=== PATIENT | female | born 1970 | race Caucasian/White ===

== ENCOUNTER 2023-05-27 21:13 | Observation (INO) | payer OTHER, SELFPAY ==
[2023-05-27] VITALS (15 sets, daily range): BP systolic 101–153; BP diastolic 57–127; BMI 29.1
[2023-05-27 19:43] LABS: % Basophils 0.3 % (0-2); % Eosinophils 0.7 % (0-6); % Immature Granulocytes 0.3 % (0-0.5); % Lymphocytes 25.6 % (20.5-51.1); % Monocytes 7.7 % (1.7-9.3); % Neutrophils 65.4 % (42.2-75.2); Absolute Eosinophils 0.1 10^3/uL (0-0.7); Absolute Monocytes 0.9 10^3/uL (0.1-0.6); Absolute Neutrophils 7.7 10^3/uL (1.4-6.5); Hematocrit 36.5 % (37.0-47.0); Hemoglobin 12.6 g/dL (12.0-16.0); Mean Corp Hgb Conc. 34.5 g/dL (33.0-37.0); Mean Corpuscular Hgb 29.4 pg (27.0-31.0); Mean Corpuscular Volume 85.3 fL (81.0-99.0); Mean Platelet Volume 10.9 fL (7.4-10.4); Nucleated Red Blood Cells % 0 %; Platelet Count 292 10^3/uL (130-400); Red Blood Cell Count 4.28 10^6/uL (4.20-5.40); Red Cell Dist. Width 13.3 % (11.5-14.5); White Blood Cell Count 11.8 10^3/uL (4.8-10.8)
--- NOTE | 2023-05-27 19:57 | ED.GENMED ---
History of Present Illness
General
Chief Complaint: Heart Rate Problem
Source: patient
Exam Limitations: none
Time Seen by Provider: 05/27/23 19:18
Travel History
Have you had any contact with someone who has COVID-19?: No
Do you have any symptoms of coronavirus? Fever > 100 degrees, chills, cough, shortness of breath, sore throat, loss of taste or smell, muscle aches, or headache?: No
History of Present Illness
History of Present Illness:
52-year-old female recent cardioversion for atrial fibrillation/flutter. Presents with recurrent episodes of heart racing. Intermittent over the last week. Metoprolol has been doubled to 25 mg a day. She took a dose this morning. No chest pain
no shortness of breath no syncope. Patient has a cardiac card to monitor her heart rate.
Past History
Past History
ED Past Medical History: Arrthythmia and Hypothyroidism
ED Past Surgical History: Cardiac (Cardiac ablation)
Social History
Tobacco: Non-smoker
Review of Systems
Review of Systems
All Other Systems: Not applicable
Respiratory: Reports no symptoms
Cardiac: Denies chest pain or syncope
Phy Exam
Physical Exam
Physical Exam:
GENERAL: Alert and oriented in no apparent distress
EYE: Orbits normal.
NECK: Supple, no thyroid palpable.
ENT: Pharynx without erythema
CARDIAC: Tachycardic and mostly regular. No murmur
LUNGS: Clear breath sounds,normal
ABDOMEN: Soft, without focal tenderness or distention
NEUROLOGICAL: Alert and oriented , grossly non-focal
SKIN: Warm and dry, no rash or lesion, no discoloration, skin intact.
MUSCULOSKELETAL: No edema,no deformity.Good color
PSYCH: Normal and appropriate interaction.
Course
Orders/Labs/Results
Orders:
Orders
05/27/23 18:40
EKG [Electrocardiogram (*1)] Urgent
Reason for Study: Chest Pain
EKG- Treatment ONCE
05/27/23 19:31
Pulse Ox/cont/shift [RESP] Stat
Quantity: 1
05/27/23 19:33
Basic Metabolic Panel Urgent
Complete Blood Count/With Diff Urgent
TSH Reflex To Free T4 Urgent
05/27/23 19:55
Diltiazem 125 mg/125 ml Nss [Cardizem] 125 mg in 125 ml IV NOW
Initial dose in mg/hr, then titrate:: 5
Titrate to keep:: Heart rate 80-100 bpm
Titrate by mg/hr:: 5 mg/hr
Frequency of titrations (minutes):: 15
Maximum dose in mg/hr:: 15
Diltiazem HCl [Cardizem] 10 mg IV NOW STA
05/27/23 20:55
Admit/Transfer Patient As Directed
Co-Sign Provider:
Level of Care: Observation services
Assign to:: IVU
Physician / Group: Dr. Keating
Diagnosis: Afib/Aflutter
05/27/23 20:56
Code Status As Directed
Resuscitation Status: Full Code
05/27/23 22:31
Apixaban [Eliquis] 5 mg PO BID
Diltiazem 125 mg/125 ml Nss [Cardizem] 125 mg in 125 ml IV PER PROTOCOL
Initial dose in mg/hr, then titrate:: 5
Titrate to keep:: Heart rate 80-100 bpm
Titrate by mg/hr:: 5 mg/hr
Frequency of titrations (minutes):: 15
Maximum dose in mg/hr:: 15
05/27/23 22:31
Activity As Directed
Activity Level: Out of Bed-Early Mobility
Vital Signs As Directed
Frequency: Per unit guidelines
05/28/23 Breakfast
Regular
At Your Request: Full Participation
Basic Metabolic Panel IN AM
Complete Blood Count/No Diff IN AM
05/28/23 07:00
Levothyroxine [Synthroid] 75 mcg PO DAILY@0700
05/28/23 22:00
Metoprolol Xl [Toprol Xl] 25 mg PO HS
Abnormal Lab Results
05/27/23
19:33
WBC 11.8 H 10^3/uL
(4.8-10.8)
Hct 36.5 L %
(37.0-47.0)
MPV 10.9 H fL
(7.4-10.4)
Absolute Neuts (auto) 7.7 H 10^3/uL
(1.4-6.5)
Absolute Monos (auto) 0.9 H 10^3/uL
(0.1-0.6)
Glucose 101 H mg/dl
(70-99)
05/27/23 19:33
05/27/23 19:33
Vital Signs
Initial and Last Documented VS:
Initial Vital Signs
Temp Pulse Resp BP Pulse Ox
98.4 F 110 20 128/86 98
05/27/23 18:43 05/27/23 18:43 05/27/23 18:43 05/27/23 18:43 05/27/23 18:43
Last Documented Vital Signs
Temp Pulse Resp BP Pulse Ox
98.7 F 97 18 117/70 95
05/27/23 22:45 05/27/23 23:45 05/27/23 22:45 05/27/23 23:00 05/27/23 22:45
MDM/Problems Addressed
Differential Diagnosis Includes:
Discussed with cardiology. Was initially contemplating cardioversion as initially I thought this might have been an event that just occurred today. However patient by history is having these episodes intermittently over the last week. She does
have prove on her card/khadar of atrial flutter last Tuesday. Because of the paroxysmal component feel cardioversion is on appropriate. Rate control admission with possible antiarrhythmic in the near future
*Critical Care Note
Total Time (30-74mins, 75-104mins- exclusive of procedures): 15
Data Reviewed
Review of Other/Old Records Reveals: Labs, Records, Testing and Progress Notes
Update Note
Update Note:
2030.... Heart rate 110 atrial flutter rate controlled.
ED Attending Note
-
Portions of this chart may have been created with voice recognition software.� Occasional wrong word or��sound alike� substitutions may have occurred due to the inherent limitations of voice recognition software.
Discharge Plan
Departure
Patient Disposition: Admit
Date of Disposition: 05/27/23
Time of Disposition: 20:01
Presentation/result/management discussed w/ accepting MD/DO: Cardiology
Discharge Problem:
ATRIAL FIBRILLATION FLUTTER, RVR
Interventions
Interventions:
*Risk Screen - Suicide Last Done: 05/27/23 22:48
*General Assessment Last Done: 05/27/23 22:41
*Neglect/Abuse Screening Last Done: 05/27/23 22:41
*ED COVID-19 Vaccine History Last Done: 05/27/23 22:48
*Nursing Disposition Last Done: 05/27/23 22:41
ED- Cardiac Assessment Last Done: 05/27/23 19:20
ED- Pulmonary Assessment Last Done: 05/27/23 19:20
Discharge Date and Time
Discharge Date/Time: 05/27/23 22:42
[2023-05-27 19:59] LABS: Blood Urea Nitrogen 12 mg/dl (7-17); Calcium 9.7 mg/dl (8.4-10.2); Carbon Dioxide 27 mmol/L (22-30); Chloride 104 mmol/L (98-107); Glucose 101 mg/dl (70-99); Potassium 3.8 mmol/L (3.5-5.1); Sodium 140 mmol/L (135-145); eGFR > 60.00
[2023-05-27] MEDS: CARDIZEM 10 MG IV (20:03)
[2023-05-27] MEDS: CARDIZEM 125 IV (20:04)
[2023-05-27 20:30] LABS: TSH Reflex To Free T4 3.73 uIU/ml (0.47-4.68)
[2023-05-27] MEDS: ELIQUIS 5 MG PO (23:04)
--- NOTE | 2023-05-27 23:32 | PTCARENOTE ---
Pt admitted for afib/aflutter- plan of care discussed- pt verbalized understanding. aflutter on the monitor- low 100s ar rest. 190s with minimal movement. pt notes little palpitations and she states she 'is not as short of breath as she would
imagine' Increased the Cardizem gtt upon arrival to the floor documented on the work list.
[2023-05-28] VITALS (11 sets, daily range): BP systolic 80–117; BP diastolic 52–69
[2023-05-28 04:07] LABS: Hematocrit 32.2 % (37.0-47.0); Hemoglobin 11.2 g/dL (12.0-16.0); Mean Corp Hgb Conc. 34.8 g/dL (33.0-37.0); Mean Corpuscular Hgb 29.3 pg (27.0-31.0); Mean Corpuscular Volume 84.3 fL (81.0-99.0); Mean Platelet Volume 11.4 fL (7.4-10.4); Platelet Count 249 10^3/uL (130-400); Red Blood Cell Count 3.82 10^6/uL (4.20-5.40); Red Cell Dist. Width 13.4 % (11.5-14.5)
[2023-05-28 04:36] LABS: Blood Urea Nitrogen 13 mg/dl (7-17); Calcium 8.5 mg/dl (8.4-10.2); Carbon Dioxide 25 mmol/L (22-30); Chloride 109 mmol/L (98-107); Estimated Creatinine Clearance 104 ml/min; Glucose 116 mg/dl (70-99); Potassium 3.5 mmol/L (3.5-5.1); Sodium 138 mmol/L (135-145); eGFR > 60.00
--- NOTE | 2023-05-28 08:13 | HPS.HSE ---
Addendum entered and electronically signed by Ye Keating MD 05/28/23 09:39:
52 yo female with PMH of typical atrial flutter, recent DCCV, is admitted with recurrent atrial flutter with RVR. Better on diltiazem drip. Minimal palps. Exam with irregular rhythm, no murmurs, no edema. Tele: A flutter 80s.
Transition diltiazem drip to PO diltiazem. Monitor rates. Assess for discharge and outpatient follow up with referral for ablation.
Original Note:
Family Physician
-
Family Physician: Veronica Keller PA-C
Chief Complaint
-
palpitations, tachycardia
History of Present Illness
52 y/o female with hypothyroidism and recently discovered atrial flutter is here for recurrent aflutter, noted by symptoms with palpitations and kardia monitor check where her HR was quite elevated. In the ER, she was placed on a diltiazem drip and
she is on at 5 mg/hr currently with HR around 100 BPM. She was not cardioverted in the ER, since it sounds like this has been paroxysmal. Recall that she had a LAY/CV on 05/03/23 to SR. She was sent home on Eliquis, then later low dose metoprolol was
added for palpitations, then increased to 25 mg daily last Tuesday. She is in no distress at the time of my assessment.
Medical History
Past Medical History
Past Medical History: Reports Arrhythmia and Hypothyroidism
Past Surgical History: Reports None
Social History
Tobacco: Non-smoker
Alcohol: Occasional
Family History
Family History: Other (mom with afib)
Allergies / Home Medications
Allergies reflects when Allergies were last updated in [facility].
Home Medications with original date entered in [facility]
Allergy/Medication List:
Allergies: none known
Medications: Eliquis 5 mg PO BID
levothyroxine 75 mcg PO daily
metoprolol 25 mg PO daily
Apri 21 tab PO HS
Review of Systems
-
History Source: Patient
A 12 point ROS was completed and negative except as noted: Yes
Cardiac: Reports Palpitations
Physical Exam
Vital Signs
Vital Signs
Temp Pulse Resp BP Pulse Ox
97.9 F 87 16 99/61 95
05/28/23 03:09 05/28/23 05:31 05/28/23 03:09 05/28/23 05:31 05/28/23 03:09
Physical Exam
General: Well Developed, Well Nourished and No Apparent Distress
HEENT: NormoCephalic and Anicteric
Respiratory: Clear and Non Labored Respirations
Cardiac: Irregular Rhythm
Breast: Deferred by me
Skin: Warm and Dry
Neuro: AO x 3
Laboratory Results
-
05/28/23 03:08
05/28/23 03:08
Data Reviewed
-
Medical Tests (Nuc Med, Echo, EKG etc): Image Personally Visualized and interpreted (Atrial flutter NS ST abnormalities) and Report Reviewed by me (echo 05/03/23: Normal left ventricular systolic function. Left ventricular ejection fraction is
60-65%. Mild mitral regurgitation. Mild to moderate tricuspid regurgitation. Estimated pulmonary artery pressure of 30-35 mmHg.)
Lab Data: Labs Reviewed by me
Impression/Plan
-
IMPRESSION/PLAN:
Atrial flutter, typical:
-currently on IV diltiazem, which requires intensive monitoring- will transition to PO and remain off metoprolol
-continue Eliquis 5 mg PO BID (she has missed no doses). [id number] score is 1 for female gender
-plan for OP consultation for ablation
Hypothyroidism:
-stable in that TSH is normal
-continue levothyroxine
[2023-05-28] MEDS: SYNTHROID 75 MCG PO (08:29)
[2023-05-28] MEDS: ELIQUIS 5 MG PO (08:29)
[2023-05-28] MEDS: CARDIZEM CD 120 MG PO (09:00)
--- NOTE | 2023-05-28 09:55 | PTCARENOTE ---
D/C'd IV Cardizem and started po as ordered.
--- NOTE | 2023-05-28 12:25 | W.PN.UPDATE ---
Update Note
Progress Note Update
Reassessed patient HR 100's, updated BP 116/72. Feeling fine. Home today with med adjustment as noted, and follow-up as planned.
--- NOTE | 2023-05-28 12:26 | W.DS.TRANS ---
DC Summary - Certified Health Education Specialist
-
Discharge Instructions:
Sleep Apnea Risk Low
Discharge Diagnosis/Procedures atrial flutter
Diet As tolerated
Activity As tolerated
Driving Restrictions As prior to admission
Bathing Restrictions None
Instructions:
Stand-Alone Forms:
Changes to Home Medications: Yes
Discharge Medications:
DC Medications w/original date entered in [facility]
desogestrel 0.15 mg-ethinyl estradiol 0.03 mg tablet (Apri) 1 tab PO HS Hormonal Agent 05/02/23
levothyroxine 75 mcg tablet (Synthroid) 75 mcg PO DAILY Thyroid 05/02/23
therapeutic multivitamin 1 tab PO DAILY Supplement 05/02/23
apixaban 5 mg tablet 5 mg PO BID #60 tabs 05/03/23
diltiazem HCl 120 mg capsule,extended release 24 hr 120 mg PO DAILY #30 caps 05/28/23
Home Medication Changes
stop metoprolol, start diltiazem
Pending Results: No
--- NOTE | 2023-05-28 13:01 | PTCARENOTE ---
D/C instructions given to patient, verbalizes understanding. INT D/C'd, telemetry D/C'd, personal belongings packed and sent home with patient. D/C to home via wc accompanied by staff.
== END 2023-05-28 13:17 | disposition home or self-care (01) ==
LOC: IVU 21:13
PROVIDERS: Nurse Practitioner Gerontology; ADMITTING PHYSICIAN Internal Medicine; EMERGENCY PHYSICIAN Emergency Medicine; FAMILY PHYSICIAN Physician Assistant Medical
DX: I48.92 Unspecified atrial flutter (principal); R00.0 Tachycardia, unspecified; E03.9 Hypothyroidism, unspecified; I48.0 Paroxysmal atrial fibrillation; I08.1 Rheumatic disorders of both mitral and tricuspid valves; Z79.890 Hormone replacement therapy; Z79.01 Long term (current) use of anticoagulants
CPT/HCPCS: 80048; 84443; 85025; 85027; 93005; 96374; 96375; 99285; G0378

== ENCOUNTER 2023-06-13 06:02 | Day surgery (SDC) | payer OTHER, SELFPAY ==
[2023-06-13] VITALS (16 sets, daily range): BP systolic 94–134; BP diastolic 64–76; BMI 30.2
[2023-06-13 06:36] LABS: HCG, Urine Qualitative Screen Negative
--- NOTE | 2023-06-13 12:01 | ITS.CL.ABL ---
Pollution Control Engineer - Ablation
Ablation
Procedure Report:
Atrial Flutter ablation:
Ms. Alvarez is a very pleasant 52 yr old woman with medical history significant for symptomatic persistent atrial flutters who is here in the EP lab for ablation
Date of Procedure:
06/13/2023
Indications:
Symptomatic atrial fibrillation
Pre-Operative Diagnosis:
Persistent atrial flutter
Post-Operative Diagnosis:
Persistent atrial flutter
Procedure Performed:
Atypical right atrial flutter x 4
Typical atrial flutter
Focal atrial tachycardia x3
Intracardiac Echocardiography.
3D mapping
Performing Physician:
Caden Charles MD
Assistants:
EP staff
Anesthesia:
See anesthesia records
Detailed Description of the Procedure:
Written informed consent was obtained from the patient after a full explanation of the risks and benefits of the procedure including the risks of sedation and anesthesia.
The patient was brought to the electrophysiology laboratory in stable condition in fasting state. Continuous electrocardiographic and hemodynamic monitoring was initiated.
The initial rhythm was sinus rhythm.
The procedure site was meticulously prepared with surgical scrub and allowed to dry with no pooling. Sterile draping was applied to cover the procedure site. The image intensifier was draped with sterile bag and positioned over the patient. After
infusion of local anesthetic, vascular access was obtained under ultrasound guidance and sheaths were placed over guide wire as detailed below.
Sheath and Catheter Placement:
In the right femoral vein, an 8-Greek sheath was placed for use during the ablation procedure. A second 9-Fr sheath was placed for use during intracardiac echo procedure.
The sheaths were upgraded as needed during the case. Intracardiac catheters were positioned using direct fluoroscopic guidance.� ICE catheter was placed in RA. The following catheters / sheaths were placed
Sheaths:
��������������� Agilis sheath in right femoral vein upgraded from 8Fr in right femoral vein
��������������� 9Fr in right femoral vein
��������������� 7fr in right femoral vein
Catheters:
������������� Biosense Cheek Thermacool STSF bidirectional (D/F; F/J) - at locations of HRA, RV, RV.
������������� Pentaray catheter � at locations of RA and CS
������������� ICE catheter - at locations of RA, SVC, and RV.
������������� Decapolar Bard catheter � at locations of RA and CS
Intracardiac ECHO:
An 8-Greek AcuNav intracardiac ECHO (ICE) probe was advanced through the 9-Greek sheath in the femoral vein into the right atrium under fluoroscopic and ICE ultrasound image guidance and a baseline ECHO study was performed. The left atrial size
was enlarged. There was trace tricuspid regurgitation. The aortic valve was normal. There was normal left ventricular size and function. There was no pericardial effusion. The OPAL has good velocities noted on Doppler. The RA was dilated and there
was large Eustachian ridge along with deep pouch in the cavo tricuspid isthmus.
During the procedure, ICE was used for monitoring of complications, guidance of trans-septal puncture, monitor the catheter position and tracking ablation lesions. No change in the pericardial space noted throughout the procedure.
3D Electroanatomic Mapping:
Using the Pentaray catheter advanced through Agilis sheath into the right atrium, an electroanatomic map (EAM) of the RA was created using [employer] Carto mapping system. The map was used for localization of catheter position and tacking of
ablation lesions.
The EAM of the right atrium showed rotated cardiac chambers along with significant large patch of scar on the lateral wall of the RA. �
Patent spontaneously developed atrial flutter and was mapped in detail.
Ablations:
Ablation was done using thermocool STSF (initially with F/J curve then with D/F curve). All the ablation lesions were guided by the MENA SOCIAL SURPOINT module with the lesions were limited to 45 presley for SURPOINT lesion index goal of 450.
Atrial Flutter #1:
The flutter was 290 msec CL and was concentric in the CS activation. The flutter was mapped in detail and was not CTI dependent and but was involving the scar of the right atrium in the lateral wall.
The scar, RA gonzalez, Darell, CTI, RV HIS were all mapped in detail. The flutter was involving the critical isthmus through the lateral scar.
The critical isthmus identified and series of lesions were done that terminated the tachycardia. Further ablations were made to create the line of block.
The CS pacing was hard to differentiate the block at the lateral wall. the CS was moved to the lateral wall of the RA and pacing showed conduction through the tricuspid isthmus and further ablation were done.
Aflutter #2:
Pacing from the CS was able to start another flutter. It was again different from the initial flutter and the CS was again placed in the CS.
The flutter was mapped using CS as reference. The flutter was coming from the anterior part of the scar of the lateral wall.
Series of ablations were placed and terminated the tachycardia.
AFlutter # 3:
Another tachcyardia spontaneously started. It was mapped to the lateral wall close to darell with scar and revolving a short critical isthmus. A single ablation at the narrow isthmus terminated the tachycardia. Further ablations were placed to
consolidate the lesions.
AT #1:
Another tachycardia noted at 320 msec. The tachycardia was mapped again and it was focal from the nikko superior junction of the scar to the superior edge. It was focal without the re-entry. Ablation at the focal point terminated the tachycardia.
Typical atrial flutter:
Then the typical atrial flutter was noted. The lateral wall of the ablation was slowing it down and the posterior wall of the RA was conducting down to the CTI. The CL was 490 ms and ablations at the CTI was done that slowed and terminated the
tachycardia.
AT #2
A focal AT was noted at the anterior wall and ablation was done to terminate it.
AT #3:
Another focal AT was noted at the lateral wall below the AT #1 and ablation terminated the tachycardia.
AFL # 4
Another tachycardia 420 msec was easily inducible with CS pacing and the PAC. The critical isthmus was identified. It was again in the center of the scar of the lateral wall. The series of ablation was done to ablate and connect the ablation lesions
to the tricuspid isthmus and the IVC.
CTI flutter reconnections:
There was conduction noted through the mid of the CTI line and further ablations were placed at the conduction point and the CTI conduction went from 110s to 180s msec with confirming the block a the CTI.
Phrenic nerve stimulation attempt:
The Darell was identified and the phrenic nerve capture was attempted at the lateral wall of the RA. No phrenic was captured at the locations of the ablation.
Sinus Node Function: The sinus node functions are within acceptable normal range.
The AV brigette functions are deemed within normal range.
Arrhythmia Induction:
No sustained arrhythmia was induced at the end of the study.�
Procedure End
ICE study was done again that showed no epicardial accumulation. No complications noted.
Following the completion of the EP study, catheters were removed. The sheaths were removed and hemostasis achieved with manual compression after acceptable ACT is achieved.
Estimated Blood loss:
<10 cc
Specimens Removed:
None.
Implants / Devices:
None
Urine output:
None
Packs / Drains/ Tubes:
None
Instrument / Sponge Count Correct:
Yes
Complications of the Procedure:
None
Condition of Patient at Time of Transfer:
Hemodynamically stable with no neurological or vascular compromise.
Summary:
Successful atypical atrial flutter ablation x4, focal atrial tachycardia ablation x3 and a typical atrial flutter ablation.
AFL #1
AFL #2
AFl # 3
AT#3
AT#2
AT # 1
AT #2
Lateral line block
== END 2023-06-13 15:33 | disposition home or self-care (01) ==
LOC: CATH 06:02
PROVIDERS: ATTENDING PHYSICIAN Internal Medicine Cardiovascular Disease; FAMILY PHYSICIAN Physician Assistant Medical; OTHER PHYSICIAN Internal Medicine Cardiovascular Disease
DX: I48.91 Unspecified atrial fibrillation (principal); I48.4 Atypical atrial flutter; I48.3 Typical atrial flutter; I47.19 Other supraventricular tachycardia; E03.9 Hypothyroidism, unspecified
CPT/HCPCS: 93655; C1769; C1894; C1730; C1732; C1766; C1892; 76937; 81025; 86850; 86860; 86870; 86880; 86900; 86901; 93005; 93653

== ENCOUNTER → 2023-07-14 15:21 | Outpatient (REF) | payer OTHER, SELFPAY | LOC: WDC 15:21 | PROVIDERS: ATTENDING PHYSICIAN Obstetrics & Gynecology; FAMILY PHYSICIAN Physician Assistant Medical | DX: Z12.31 Encounter for screening mammogram for malignant neoplasm of breast (principal) | CPT/HCPCS: 77063; 77067 ==

== ENCOUNTER 2023-10-27 13:44 | Emergency (ER) | payer OTHER, SELFPAY ==
[2023-10-27 13:55] VITALS: BP 148/76
[2023-10-27 14:17] LABS: % Basophils 0.2 % (0-2); % Eosinophils 0.7 % (0-6); % Immature Granulocytes 0.3 % (0-0.5); % Lymphocytes 23.8 % (20.5-51.1); % Monocytes 6.4 % (1.7-9.3); % Neutrophils 68.6 % (42.2-75.2); Absolute Eosinophils 0.1 10^3/uL (0-0.7); Absolute Lymphocytes 2.5 10^3/uL (1.2-3.4); Absolute Monocytes 0.7 10^3/uL (0.1-0.6); Absolute Neutrophils 7.1 10^3/uL (1.4-6.5); Hematocrit 37.8 % (37.0-47.0); Hemoglobin 12.9 g/dL (12.0-16.0); Mean Corp Hgb Conc. 34.1 g/dL (33.0-37.0); Mean Corpuscular Hgb 28.4 pg (27.0-31.0); Mean Corpuscular Volume 83.3 fL (81.0-99.0); Mean Platelet Volume 10.1 fL (7.4-10.4); Nucleated Red Blood Cells % 0 %; Platelet Count 279 10^3/uL (130-400); Red Blood Cell Count 4.54 10^6/uL (4.20-5.40); Red Cell Dist. Width 12.5 % (11.5-14.5); White Blood Cell Count 10.3 10^3/uL (4.8-10.8)
[2023-10-27 14:44] LABS: ALT (SGPT) 25 U/L (0-35); AST (SGOT) 26 U/L (14-36); Albumin 4.5 g/dl (3.5-5.0); Alkaline Phosphatase 84 U/L (38-126); Blood Urea Nitrogen 21 mg/dl (7-17); Calcium 9.6 mg/dl (8.4-10.2); Carbon Dioxide 26 mmol/L (22-30); Chloride 106 mmol/L (98-107); Glucose 162 mg/dl (70-99); Sodium 141 mmol/L (135-145); Total Bilirubin 0.7 mg/dl (0.2-1.3); Total Protein 7.3 g/dl (6.3-8.2); Troponin I < 0.012 ng/ml; eGFR > 60.00
[2023-10-27 15:37] VITALS: BP 125/71
[2023-10-27 16:00] VITALS: BP 127/74
--- NOTE | 2023-10-27 16:06 | ED.GENMED ---
History of Present Illness
General
Source: patient
Exam Limitations: none
Time Seen by Provider: 10/27/23 15:46
Nursing documentation reviewed up to this point in time: agreed with
History of Present Illness
History of Present Illness:
Pt is a 52-year-old female presents to the ER for evaluation. Patient has a history of A flutter and cardioversion May 2023. She is followed by Dr. Matthews. She has no history however of atherosclerotic disease. She complains of
intermittent burning sensation in her chest, left-sided chest since Tuesday for the past several days. Today she noticed that her left arm felt heavy and presented to the ER. She denies any recent injury. She denies any shortness of breath or pain
with deep breath. She denies any rash. Denies any fever or chills. Denies any cough.
Past History
Past History
ED Past Medical History: Arrthythmia and Hypothyroidism
ED Past Surgical History: Cardiac (Cardiac ablation)
Social History
Tobacco: Non-smoker
Review of Systems
Review of Systems
Allergies reviewed?: Yes
All Other Systems: ROS reviewed and negative except as documented in HPI and ROS
Constitutional: Reports no symptoms
Respiratory: Reports no symptoms; Denies trouble breathing
Cardiac: Reports chest pain; Denies diaphoresis, palpitations or syncope
ABD/GI: Reports no symptoms
Musculoskeletal: Reports no symptoms
Skin: Reports no symptoms
Neurological: Reports no symptoms
Psychiatric: Reports no symptoms
Phy Exam
General Physical Exam
General Presentation: no apparent distress
General age: appears stated age
General Skin: warm and dry
General Habitus: normal
General Mental: alert
General Hydration: appears well hydrated
Cardiovascular Exam
Cardiovascular Exam: regular rate/rhythm, no murmur and normal peripheral pulses
Pulmonary Exam
Pulmonary Exam: lungs clear and no respiratory distress
Neurological Exam
Neurological Exam: alert and oriented x3
Musculoskeletal Exam
Musculoskeletal Exam: full ROM
Skin Exam
Skin Exam: normal color and warm/dry
Psychiatric Exam
Psychiatric Exam: normal mood/affect
Course
Orders/Labs/Results
Orders:
Orders
10/27/23 13:50
Electrocardiogram (*1) Urgent
Reason for Study: Chest Pain
EKG- Treatment ONCE
10/27/23 14:11
Complete Blood Count/With Diff Urgent
Comprehensive Metabolic Panel Urgent
Troponin I Urgent
10/27/23 16:15
Chest [CR Chest - 2 Views ] Urgent
Comment:
Reason For Exam: cp
Abnormal Lab Results
10/27/23
14:11
Absolute Neuts (auto) 7.1 H 10^3/uL
(1.4-6.5)
Absolute Monos (auto) 0.7 H 10^3/uL
(0.1-0.6)
BUN 21 H mg/dl
(7-17)
Glucose 162 H mg/dl
(70-99)
10/27/23 14:11
10/27/23 14:11
Vital Signs
Initial and Last Documented VS:
Initial Vital Signs
Temp Pulse Resp BP Pulse Ox
98.0 F 88 16 148/76 98
10/27/23 13:55 10/27/23 13:55 10/27/23 13:55 10/27/23 13:55 10/27/23 13:55
Last Documented Vital Signs
Temp Pulse Resp BP Pulse Ox
98.0 F 86 18 127/74 98
10/27/23 13:55 10/27/23 16:00 10/27/23 16:00 10/27/23 16:00 10/27/23 13:55
MDM/Problems Addressed
Differential Diagnosis Includes:
Not limited to musculoskeletal chest pain, less likely CAD/USA
MDM/Problems Addressed:
Patient is a 52-year-old female who had history of a a flutter, ablation May 2023 presents to the ER for evaluation. For the past several days since Tuesday patient has had some left-sided chest burning and today had some heaviness in chest.
She is no history of blockages. She had a normal echo and April 2023. She had no associated shortness of breath. She presents to the ER awake alert no acute distress nontachycardic nontachypneic lungs are clear. Patient had a normal cardiac
troponin no acute findings on EKG. She has a normal sinus rhythm. No symptoms or clinical findings consistent with PE. r she reports this is a mild burning to the left chest she does not want anything for that she was offered. No rash. Shingles
was considered. She will be discharged on chest pain hotline.
*Critical Care Note
Total Time (30-74mins, 75-104mins- exclusive of procedures): Not Applicable
Data Reviewed
Review of Other/Old Records Reveals: Other (Echo from April 2023 shows normal LV function ejection fraction 60 to 65%)
ED Attending Note
-
Portions of this chart may have been created with voice recognition software.� Occasional wrong word or��sound alike� substitutions may have occurred due to the inherent limitations of voice recognition software.
Discharge Plan
Departure
Patient Disposition: Home (Routine Discharge)
Date of Disposition: 10/27/23
Time of Disposition: 17:34
Patient with high blood pressure during this ER visit?: Yes
Covid-19: Not Applicable
Discharge Problem:
Chest pain
Instructions: Chest Pain CBC Follow Up
Prescriptions:
No Action
desogestrel-ethinyl estradiol [Apri] 0.15-0.03 mg Tablet
1 tab PO HS
therapeutic multivitamin Tablet
1 tab PO DAILY
levothyroxine [Synthroid] 75 mcg Tablet
75 mcg PO DAILY
apixaban 5 mg tablet
5 mg PO BID Qty: 60 1RF
metoprolol succinate 50 mg tablet extended release 24 hr
50 mg PO DAILY Qty: 90 3RF
Referrals:
Veronica Keller PA-C [Family Provider] -
Anjel Matthews MD [Active] -
Activity Restrictions/Additional Instructions:
Follow-up with cardiology. As discussed you were placed on the chest pain hotline.
you should receive a call in the next several days from their office .if you do not please give them a call to schedule appointment and return if any worsening of symptoms
Interventions
Interventions:
*Risk Screen - Suicide Last Done: 10/27/23 15:40
*General Assessment Last Done: 10/27/23 15:40
*Neglect/Abuse Screening Last Done: 10/27/23 15:40
ED- Cardiac Assessment Last Done: 10/27/23 15:40
Discharge Date and Time
Print Language: SENEGALESE
== END 2023-10-27 17:49 | disposition home or self-care (01) ==
LOC: EMR 13:44
PROVIDERS: Emergency Medicine; EMERGENCY PHYSICIAN Emergency Medicine; FAMILY PHYSICIAN Physician Assistant Medical
DX: R07.89 Other chest pain (principal); E03.9 Hypothyroidism, unspecified
CPT/HCPCS: 99283; 71046; 80053; 84484; 85025; 93005

== ENCOUNTER → 2023-11-10 06:54 | Outpatient (REF) | payer OTHER, SELFPAY | LOC: RAD 06:54 | PROVIDERS: ATTENDING PHYSICIAN Internal Medicine Endocrinology, Diabetes & Metabolism; FAMILY PHYSICIAN Physician Assistant Medical | DX: E06.3 Autoimmune thyroiditis (principal) | CPT/HCPCS: 76536 ==

== ENCOUNTER → 2024-07-17 15:43 | Outpatient (REF) | payer OTHER, SELFPAY | LOC: WDC 15:43 | PROVIDERS: ATTENDING PHYSICIAN Obstetrics & Gynecology; FAMILY PHYSICIAN Physician Assistant Medical | DX: Z12.31 Encounter for screening mammogram for malignant neoplasm of breast (principal) | CPT/HCPCS: 77063; 77067 ==

== ENCOUNTER 2025-02-16 12:04 | Emergency (ER) | payer OTHER, SELFPAY ==
[2025-02-16 12:11] VITALS: BP 131/79
--- NOTE | 2025-02-16 12:58 | ED.GENMED ---
History of Present Illness
General
Chief Complaint: Heart Rate Problem
Time Seen by Provider: 02/16/25 12:34
History of Present Illness
History of Present Illness:
54-year-old female with prior history of a flutter status post ablation 2 years ago presenting for palpitations. Patient reports symptoms for the past 5 days. She is on metoprolol 50 mg daily, otherwise no blood thinners. Denies associated chest
pain or difficulty breathing. Denies abdominal pain or GI symptoms. Denies fever. Patient follows with Dr. Matthews. Denies additional acute medical complaints
Past History
Past History
ED Past Medical History: Arrthythmia and Hypothyroidism
ED Past Surgical History: Cardiac (Cardiac ablation)
Social History
Tobacco: Non-smoker
Phy Exam
Physical Exam
Physical Exam:
General: Well-appearing, no clinical signs of dehydration, nontoxic and in no acute distress
HEENT: protecting airway
Neck: appears supple
CV: Irregularly irregular rhythm, tachycardic
Resp: No accessory muscle use, no increased work of breathing, lungs clear to auscultation bilaterally
Abd: No distention
Extremities: No deformities, no swelling
Neuro: alert, no focal neurologic deficit
: deferred
Rectal: deferred
Psych: Normal affect
Skin: Intact
Course
Orders/Labs/Results
Orders:
Orders
02/16/25 12:06
EKG [Electrocardiogram (*1)] Urgent
Reason for Study: Palpitations
02/16/25 12:07
EKG- Treatment ONCE
02/16/25 12:53
Diltiazem HCl [Cardizem] 15 mg IV NOW STA
02/16/25 13:20
Complete Blood Count/With Diff Urgent
TSH Reflex To Free T4 Urgent
02/16/25 13:24
Electrocardiogram (*1) Urgent
Reason for Study: Atrial Fibrillation
EKG- Treatment ONCE
02/16/25 13:35
Comprehensive Metabolic Panel Urgent
Abnormal Lab Results
02/16/25
13:20
MPV 11.0 H fL
(7.4-10.4)
Absolute Monos (auto) 0.7 H 10^3/uL
(0.1-0.6)
02/16/25 13:20
Vital Signs
Initial and Last Documented VS:
Initial Vital Signs
Temp Pulse Resp BP Pulse Ox
98.5 F 110 16 131/79 99
02/16/25 12:11 02/16/25 12:11 02/16/25 12:11 02/16/25 12:11 02/16/25 12:11
Last Documented Vital Signs
Temp Pulse Resp BP Pulse Ox
98.5 F 92 17 125/74 96
02/16/25 12:11 02/16/25 13:45 02/16/25 13:45 02/16/25 13:05 02/16/25 13:45
MDM/Problems Addressed
MDM/Problems Addressed:
54-year-old female with prior history of A-fib status post ablation presenting for palpitations for the past 5 days. Vital signs on arrival are significant for tachycardia.
On exam, patient resting comfortably, no acute distress. Patient denying any chest pain or difficulty breathing. No hemodynamic instability. EKG obtained on arrival appears consistent with atrial fibrillation, suspected source of patient
palpitations. Patient not a candidate for cardioversion given onset of symptoms 5 days ago, no anticoagulation. Given that patient is on metoprolol. Will give a dose of IV metoprolol for rate control. Will send screening laboratory analysis and
discussed with cardiology.
Patient appears to have spontaneously converted prior to any medications. Labs are unremarkable. In discussion with cardiology, suspect that patient symptoms and EKGs are consistent with atrial tachycardia versus atrial flutter with variable
block, which patient is known to have had. He does not recommend anticoagulation with low [id number] score and without any present sign of concerning atrial fibrillation. He notes that it may be reasonable to add another half tablet of her
metoprolol. However patient has with Dr. Matthews on the . Ultimately feel stable for discharge with close and will follow-up with Dr. Matthews regarding her symptoms. Return precautions discussed and patient verbalized understand
*Pulse Oximetry
SaO2: 99
Oxygen Mode of Delivery: Room air
Patient hypoxic: no
*EKG
Interpreted by ED Provider?: Yes
EKG Intrepretation Date: 02/16/25
EKG Intrepretation Time: 13:30
Interpretation: abnormal
Comparison EKG: changes noted
Heart Rate: 117
Rate: tachycardiac
Rhythm: a-fib
[place]: normal axis
QRS Pattern: normal QRS
Ischemia: non-specific ST changes
*Critical Care Note
Total Time (30-74mins, 75-104mins- exclusive of procedures): Not Applicable
ED Attending Note
-
Portions of this chart may have been created with voice recognition software.� Occasional wrong word or��sound alike� substitutions may have occurred due to the inherent limitations of voice recognition software.
Discharge Plan
Departure
Prescriptions:
No Action
desogestrel-ethinyl estradiol [Apri] 0.15-0.03 mg Tablet
1 tab PO HS
therapeutic multivitamin Tablet
1 tab PO DAILY
levothyroxine [Synthroid] 75 mcg Tablet
75 mcg PO DAILY
apixaban 5 mg tablet
5 mg PO BID Qty: 60 1RF
metoprolol succinate 50 mg tablet extended release 24 hr
50 mg PO DAILY Qty: 90 3RF
Referrals:
Veronica Keller PA-C [Family Provider, Family Practice]
Interventions
Interventions:
*Risk Screen - Suicide Last Done: 02/16/25 12:11
*General Assessment Last Done: 02/16/25 12:11
*Neglect/Abuse Screening Last Done: 02/16/25 12:11
*ED- Fall Risk Assessment Last Done: 02/16/25 12:11
*ED COVID-19 Vaccine History Last Done: 02/16/25 12:11
*ED Influenza Vaccine History Last Done: 02/16/25 12:11
ED- Cardiac Assessment Last Done: 02/16/25 13:28
ED- Pulmonary Assessment Last Done: 02/16/25 13:28
Discharge Date and Time
Print Language: SYRIAC
[2025-02-16 13:05] VITALS: BP 125/74; BMI 30.7
[2025-02-16 13:39] LABS: Hematocrit 43.1 % (37.0-47.0); Hemoglobin 14.5 g/dL (12.0-16.0); Mean Corp Hgb Conc. 33.6 g/dL (33.0-37.0); Mean Corpuscular Volume 86.9 fL (81.0-99.0); Nucleated Red Blood Cells % 0 %; Platelet Count 246 10^3/uL (130-400); Red Cell Dist. Width 13.2 % (11.5-14.5)
[2025-02-16 14:44] LABS: ALT (SGPT) 17 U/L (0-35); AST (SGOT) 21 U/L (14-36); Albumin 4.7 g/dl (3.5-5.0); Alkaline Phosphatase 85 U/L (38-126); Blood Urea Nitrogen 17 mg/dl (7-17); Calcium 9.6 mg/dl (8.4-10.2); Carbon Dioxide 26 mmol/L (22-30); Chloride 107 mmol/L (98-107); Estimated Creatinine Clearance 105 ml/min; Glucose 90 mg/dl (70-99); Potassium 3.9 mmol/L (3.5-5.1); Sodium 139 mmol/L (135-145); Total Protein 8.1 g/dl (6.3-8.2); eGFR > 60.00
== END 2025-02-16 15:23 | disposition home or self-care (01) ==
LOC: EMR 12:04
PROVIDERS: EMERGENCY PHYSICIAN Student in an Organized Health Care Education/Training Program; FAMILY PHYSICIAN Physician Assistant Medical
DX: I47.19 Other supraventricular tachycardia (principal); I48.91 Unspecified atrial fibrillation; E03.9 Hypothyroidism, unspecified; Z79.01 Long term (current) use of anticoagulants
CPT/HCPCS: 99284; 80053; 84443; 85025; 93005

== ENCOUNTER → 2025-03-29 14:47 | Outpatient (REF) | payer OTHER, SELFPAY | LOC: RCS 14:47 | PROVIDERS: ATTENDING PHYSICIAN Internal Medicine Cardiovascular Disease; FAMILY PHYSICIAN Physician Assistant Medical | DX: I47.19 Other supraventricular tachycardia (principal) | CPT/HCPCS: 93306 ==